=== PATIENT | male | born 1985 | race Two or more races ===

== ENCOUNTER 2020-12-01 17:51 | Emergency (ER) | payer OTHER ==
[~2020-12-01] VITALS: Ht 182.9 cm; Wt 83.9 kg
[2020-12-01 18:07] VITALS: BP 120/80
[2020-12-01] MEDS ORDERED: ACETAMINOPHEN ES 500 MG TABLET ONE (18:21)
[2020-12-01] MEDS ORDERED: ACETAMINOPHEN ES 500 MG TABLET PO ONE (18:30)
--- NOTE | 2020-12-01 18:36 | NUR ---
patient left via ambulatory accompanied by in no distress.
== END 2020-12-01 18:35 ==
LOC: ER 18:02
DX: Z20.89 Contact with and (suspected) exposure to other communicable diseases (principal)

== ENCOUNTER 2021-04-16 09:59 | Emergency (ER) | payer OTHER ==
[~2021-04-16] VITALS: Ht 182.9 cm; Wt 81.6 kg
[2021-04-16 10:18] VITALS: BP 156/84
--- NOTE | 2021-04-16 10:38 | NUR ---
BIBPD C/O HEROIN WITHDRAWAL LAST USE MONDAY. PT VITALS ARE WITHIN NORMAL LIMITS. BREATHING IS REGULAR AND UNLABORED. PT ATTCHED TO [employer] AND PULSE OX. WILL CONTINUE TO MONITOR.
--- NOTE | 2021-04-16 10:58 | NUR ---
Patient discharged to detention in stable condition. Written and verbal after care instructions given. Patient verbalizes understanding of instruction.
== END 2021-04-16 10:59 ==
LOC: ER 10:13
DX: Z02.89 Encounter for other administrative examinations (principal)